=== PATIENT | male | born 1960 | race Caucasian/White ===

== ENCOUNTER 2025-02-17 22:04 | Emergency (ER) | payer OTHER, SELFPAY ==
[2025-02-17 22:05] VITALS: BP 160/110
[2025-02-17 22:42] LABS: COVID-19 Antigen Negative (Negative)
[2025-02-17 23:47] VITALS: BP 179/93
[2025-02-18] VITALS: BP 167/85
[2025-02-18 00:38] LABS: ALT (SGPT) 41 U/L (0-50); AST (SGOT) 28 U/L (17-59); Albumin 4.6 g/dl (3.5-5.0); Alkaline Phosphatase 91 U/L (38-126); Blood Urea Nitrogen 12 mg/dl (9-20); Calcium 9.4 mg/dl (8.4-10.2); Carbon Dioxide 24 mmol/L (22-30); Chloride 101 mmol/L (98-107); Glucose 134 mg/dl (70-99); Potassium 4.3 mmol/L (3.5-5.1); Sodium 135 mmol/L (135-145); Total Protein 7.2 g/dl (6.3-8.2); eGFR > 60.00
[2025-02-18 00:44] LABS: Hematocrit 44.5 % (39.0-52.0); Hemoglobin 15.0 g/dL (13.0-18.0); Mean Corp Hgb Conc. 33.7 g/dL (33.0-37.0); Mean Corpuscular Volume 89.4 fL (80.0-94.0); Nucleated Red Blood Cells % 0 % (-); Platelet Count 234 10^3/uL (130-400); Red Cell Dist. Width 13.5 % (11.5-14.5)
--- NOTE | 2025-02-18 01:02 | ED.GENMED ---
History of Present Illness
General
Chief Complaint: Fever
Source: patient and family
Exam Limitations: none
Time Seen by Provider: 02/17/25 23:53
Nursing documentation reviewed up to this point in time: agreed with
History of Present Illness
History of Present Illness:
65-year-old male with a past medical history as noted presents to the ER for evaluation of right calf pain. Patient reports onset of symptoms about a week ago and they have been constant since that time. Reports pain in the right calf associated
with some mild swelling. Pain is worse with movement and palpation. No relieving factors noted. He has not noticed any redness or skin changes. He denies any trauma or injury. He does note that over the past 24 hours he has had flulike
illness�two family members tested positive for influenza A recently.
Past History
Past History
ED Past Medical History: Asthma and HTN
ED Past Surgical History: Orthopedic and Other
Review of Systems
Review of Systems
All Other Systems: ROS reviewed and negative except as documented in HPI and ROS
Constitutional: Reports fatigue; Denies fever or chills
EENT: Reports sore throat
Respiratory: Reports cough; Denies trouble breathing
Cardiac: Denies chest pain
ABD/GI: Denies abdominal pain, nausea or vomiting
: Denies flank pain
Musculoskeletal: Reports muscle pain and edema; Denies neck pain
Neurological: Reports headache; Denies dizzy
Phy Exam
Physical Exam
Physical Exam:
General: Awake, alert, oriented x3; no acute distress
Head: Normocephalic, atraumatic
Eyes: Conjunctiva normal, EOMI
Throat: Airway intact, handling secretions
Neck: Trachea midline, supple without meningismus
Lungs: Breathing comfortably with no tachypnea or hypoxia and no evidence of respiratory distress
Heart: Regular rate
Neuro: Grossly intact
Skin: Warm and dry, no erythema, warmth or wounds noted in the right lower extremity
Extremities: Patient has trace edema in the right calf with some mild right calf tenderness but no palpable cord, strong pulses throughout the right lower extremity femoral, popliteal, DP and PT all palpable; neuroexam intact in the right lower
extremity; rest of extremities are atraumatic, nontender, no swelling and good pulses
Scores
Heart Failure Risk
Heart Failure Risk Score: Not Applicable
Heart Score for Chest Pain Patients
STEMI patient?: Not applicable
Withdrawal Assessment of Alcohol
Withdrawal Assessment Completed?: Not applicable
Sepsis
Sepsis Screening
Sepsis Assessment: Sepsis Ruled Out
Sepsis Screen
Sepsis Screen: Sepsis Ruled Out
Date: 02/18/25
Time: 01:15
Course
Orders/Labs/Results
Orders:
Orders
02/17/25 22:08
Legs, Right US [US Periph Venous LOWER Ext RT] Urgent
Comment:
Reason For Exam: swelling and pain
02/17/25 22:10
COVID-19 Antigen Urgent
Source: Nasal Swab
Influenza A+B Rapid Molecular Urgent
BRENDA Source: Nasal Swab
Specimen Description:
02/18/25 00:06
CR Leg Tibia/fibula Right 2 Vw Urgent
Comment:
Reason For Exam: right lower leg pain
02/18/25 00:07
CPK [Creatine Phosphokinase] Urgent
Complete Blood Count/With Diff Urgent
Comprehensive Metabolic Panel Urgent
Abnormal Lab Results
02/18/25
00:07
MPV 10.5 H fL
(7.4-10.4)
Abs Immat Gran (auto) 0.1 H 10^3/uL
(0-0.05)
Absolute Neuts (auto) 7.3 H 10^3/uL
(1.4-6.5)
Absolute Lymphs (auto) 0.4 L 10^3/uL
(1.2-3.4)
Absolute Monos (auto) 0.8 H 10^3/uL
(0.1-0.6)
Immature Gran % 0.6 H %
(0-0.5)
Neutrophils % 84.0 H %
(42.2-75.2)
Lymphocytes % 4.6 L %
(20.5-51.1)
Glucose 134 H mg/dl
(70-99)
02/18/25 00:07
02/18/25 00:07
Vital Signs
Initial and Last Documented VS:
Initial Vital Signs
Temp Pulse Resp BP Pulse Ox
37.6 C 110 16 160/110 95
02/17/25 22:05 02/17/25 22:05 02/17/25 22:05 02/17/25 22:05 02/17/25 22:05
Last Documented Vital Signs
Temp Pulse Resp BP Pulse Ox
37.1 C 102 17 167/85 95
02/18/25 00:10 02/18/25 00:00 02/18/25 00:00 02/18/25 00:00 02/18/25 01:02
MDM/Problems Addressed
Differential Diagnosis Includes:
Calf strain, cellulitis, myositis, DVT; fracture unlikely in the absence of trauma; nothing to suggest claudication with a warm extremity and bounding pulses
MDM/Problems Addressed:
65-year-old male presents for evaluation of atraumatic right calf pain for the past week preceding flulike illness�2 family members are sick with the flu recently. Vitals and exam as above. He had an ultrasound in triage which was negative for
DVT. Check basic labs, CPK, x-ray.
Labs reviewed: CBC unremarkable, CMP no clinically significant abnormalities. CPK negative. X-ray appears to show old callus in the right ankle near prior fracture but no acute abnormality. This is nowhere near his area of tenderness which is
mainly in the calf muscle. He has no skin changes to suggest that this is a cellulitis this could be a mild myositis versus muscular strain versus dependent edema/lymphedema. No clear indication for hospitalization at this point in time think he
stable for discharge with supportive care. Advised to elevate, compression, Tylenol and NSAIDs as needed. Patient comfortable with this plan. All questions answered.
*Radiology
Radiology exam reviewed: preliminary read by ED provider and radiology read reviewed
*Pulse Oximetry
SaO2: 95
Oxygen Mode of Delivery: Room air
Patient hypoxic: no (95%)
*Critical Care Note
Total Time (30-74mins, 75-104mins- exclusive of procedures): Not Applicable
Data Reviewed
Review of Other/Old Records Reveals: Labs and Records
Source: patient, records and family
ED Attending Note
-
Portions of this chart may have been created with voice recognition software.� Occasional wrong word or��sound alike� substitutions may have occurred due to the inherent limitations of voice recognition software.
Discharge Plan
Departure
Patient Disposition: Home (Routine Discharge)
Date of Disposition: 02/18/25
Time of Disposition: 01:19
Patient with high blood pressure during this ER visit?: Yes
Discharge Problem:
Pain of right calf
Instructions: Muscle, joint, and bone pain (DC)
Prescriptions:
No Action
losartan 50 MG tablet
50 mg PO DAILY
metronidazole 500 MG tablet
500 mg PO Q8 7 Days Qty: 21 0RF
ciprofloxacin HCl 500 MG tablet
500 mg PO BID 7 Days Qty: 14 0RF
Referrals:
Gurvinder Arias DO [Family Provider, Family Practice] - Follow up in 1 week
Activity Restrictions/Additional Instructions:
Thank you for visiting the Emergency Department at [facility].
1. Please schedule a follow up appointment as directed. Call first thing tomorrow morning to make an appointment.
2. If indicated, please take your medications as instructed and indicated on discharge paperwork.
3. If any of your symptoms do not improve, or persist, or become more severe within 6-12 hours, please return to the emergency department for further care.
4. Please return to the emergency department if you develop a headache, neck pain/stiffness, fever greater than 100.4F, chest pain, shortness of breath, persistent nausea, vomiting, slurred speech, difficulty walking, numbness/tingling, weakness,
signs of infection or any other symptoms that are worrisome to you.
Please call [phone] if you have any questions.
Interventions
Interventions:
*Risk Screen - Suicide Last Done: 02/17/25 22:08
*Neglect/Abuse Screening Last Done: 02/17/25 22:08
[facility] Fall Risk Assessment Tool Last Done: 02/18/25 00:09
Discharge Date and Time
Print Language: ITALIAN
[2025-02-18] MEDS: TORADOL 15 MG IV (01:47)
[2025-02-18] MEDS: OFIRMEV 100 IV (01:47)
[2025-02-18 01:50] VITALS: BP 171/96
[2025-02-18 02:00] VITALS: BP 157/91
== END 2025-02-18 02:43 | disposition home or self-care (01) ==
LOC: EMR 22:04
PROVIDERS: Emergency Medicine; EMERGENCY PHYSICIAN Emergency Medicine; FAMILY PHYSICIAN Family Medicine
DX: M79.661 Pain in right lower leg (principal); R50.9 Fever, unspecified; J45.909 Unspecified asthma, uncomplicated; I10 Essential (primary) hypertension
CPT/HCPCS: 99284; 96374; 96375; 73590; 80053; 82550; 85025; 87502; 87811; 93971